=== PATIENT | female | born 1995 | race Caucasian/White ===

== ENCOUNTER 2017-01-12 21:25 | Emergency (ER) | payer SELFPAY ==
--- NOTE | 2017-01-12 22:12 | ED NURSING NOTES ---
Clinical Report - Nurses [facility] [address] [place] [address] 01/12/2017 21:27 Patient: PAT PATEL TRIAGE Triage time 21:32 Jan 12 2017. Acuity: LEVEL 3. Chief Complaint: PAINFUL URINATION, URGENCY and FREQUENCY. 21:37 01/12/17. SEPSIS SCREEN: Sepsis Screen. Negative (no infection suspected/documented). PEDRO COMA SCORE: Pedro Coma Scale: 15- eyes open spontaneously (4); best verbal response- oriented x 4 (5); best motor response- obeys commands (6). --21:37 Tiffany May R.N. 21:31 01/12/17. BP: 127/82 (regular adult cuff) taken on the left arm, while sitting. HR: 94. RR: 18. O2 saturation: 100% on room air. Temp: 98.2 F (oral). Pain level now: 8. --21:37 Tiffany May R.N. Weight: 69.8 kg stated. Height/Length: 68 inches Per Patient. BMI: 23.4. Growth Chart Percentile: Weight: 84.5%. Height/Length: 92.8%. --21:33 Tiffany May R.N. Medications None. --21:33 Tiffany May R.N. Allergies No Known Drug Allergy. --21:33 Tiffany May R.N. History Arrived by private vehicle. Historian: patient. Accompanied by friend. Onset. (2 days ago). She has had moderate, cramping, constant abdominal pain. The pain is described as located in the lower abdomen and associated with nausea and hematuria. 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 PAST MEDICAL HX: Last normal menstrual period now. SOCIAL HX: Current every day heavy tobacco smoker (cigarette)- less than 1 pack per day. History of weekly drug use: marijuana. No alcohol use. No infectious disease exposure. ABUSE ASSESSMENT: No report of abuse. SELF HARM ASSESSMENT: A self harm assessment was performed. The patient answered "no" to the question "Do you have thoughts of harming or killing yourself?" and "Have you recently had thoughts about harming or killing others?". --21:37 Tiffany May R.N. PROBLEMS: Cellulitis. Laceration. --21:33 Tiffany May R.N. ADDITIONAL SURGERIES: no known surgeries. Interventions ID band on patient. To treatment room. --21:37 Tiffany May R.N. PHYSICAL ASSESSMENT 21:38 01/12/17. Ambulatory to room. Patient gowned. GENERAL / NEURO / PSYCH: Alert. Oriented X 4. Appears in no acute distress. Appears in pain. HEENT: Mucous membranes are pink. RESPIRATORY: Respirations not labored. Breath sounds within normal limits. CVS: Normal heart rate and rhythm. Capillary refill less than 2 seconds. GI / : Abdomen soft and nontender. Guarding present. Bowel sounds within normal limits. No vaginal bleeding. No vaginal discharge. SKIN: Skin is warm and dry. --21:38 Tiffany May R.N. NURSING PROGRESS NOTES 21:38 01/12/17. The plan of care for this patient has been created. Monitoring of patient in place. Patient gowned. Head of bed elevated. Reassurance given. Two patient identifiers checked. Call light placed in reach. Side rails up x 1. Bed placed in lowest position. Brakes of bed on. Patient ready for evaluation- chart flagged and ED physician notified. --21:38 Tiffany May R.N. late entry - 21:45 01/12/17. ( Patients boyfriend at bedside for comfort, offered warm blanket she refused). --22:19 Tiffany May R.N. 22:18 01/12/2017 Macrobid PO Capsules 100 mg given. Allergies verified and confirmed 5 rights. --22:18 Tiffany May R.N. DISPOSITION / DISCHARGE 22:23 01/12/17. Condition at departure: unchanged. No learning barriers present. Discharge instructions provided and reviewed with the patient. Reviewed medication(s) side effects, precautions, dosing and course information. Prescription(s) given to the patient. Patient verbalized understanding. Written instructions provided in Macedonian. The patient was discharged by the physician assistant tennis coach. She was discharged home. She left the Emergency Department ambulatory and via private vehicle. Jewel Bearing Maker driving. --22:23 Tiffany May R.N. 22:18 01/12/17. BP: 118/85 (regular adult cuff) taken on the left arm, while sitting. HR: 89. RR: 18. O2 saturation: 99% on room air. Temp: 98.9 F (oral). Pain level now: 02/18. --22:23 Tiffany May R.N. Departure time: 22:Jan 12 2017. --22:26 Tiffany May R.N. Locked/Released at 01/13/2017 5:51 by Tiffany May R.N.
--- NOTE | 2017-01-12 22:12 | ED NURSING NOTES ---
Clinical Report - Nurses [facility] [address] [place] [address] 01/12/2017 21:27 Patient: PAT PATEL TRIAGE Triage time 21:32 Jan 12 2017. Acuity: LEVEL 3. Chief Complaint: PAINFUL URINATION, URGENCY and FREQUENCY. 21:37 01/12/17. SEPSIS SCREEN: Sepsis Screen. Negative (no infection suspected/documented). PEDRO COMA SCORE: Pedro Coma Scale: 15- eyes open spontaneously (4); best verbal response- oriented x 4 (5); best motor response- obeys commands (6). --21:37 Tiffany May R.N. 21:31 01/12/17. BP: 127/82 (regular adult cuff) taken on the left arm, while sitting. HR: 94. RR: 18. O2 saturation: 100% on room air. Temp: 98.2 F (oral). Pain level now: 8. --21:37 Tiffany May R.N. Weight: 69.8 kg stated. Height/Length: 68 inches Per Patient. BMI: 23.4. Growth Chart Percentile: Weight: 84.5%. Height/Length: 92.8%. --21:33 Tiffany May R.N. Medications None. --21:33 Tiffany May R.N. Allergies No Known Drug Allergy. --21:33 Tiffany May R.N. History Arrived by private vehicle. Historian: patient. Accompanied by friend. Onset. (2 days ago). She has had moderate, cramping, constant abdominal pain. The pain is described as located in the lower abdomen and associated with nausea and hematuria. 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 PAST MEDICAL HX: Last normal menstrual period now. SOCIAL HX: Current every day heavy tobacco smoker (cigarette)- less than 1 pack per day. History of weekly drug use: marijuana. No alcohol use. No infectious disease exposure. ABUSE ASSESSMENT: No report of abuse. SELF HARM ASSESSMENT: A self harm assessment was performed. The patient answered "no" to the question "Do you have thoughts of harming or killing yourself?" and "Have you recently had thoughts about harming or killing others?". --21:37 Tiffany May R.N. PROBLEMS: Cellulitis. Laceration. --21:33 Tiffany May R.N. ADDITIONAL SURGERIES: no known surgeries. Interventions ID band on patient. To treatment room. --21:37 Tiffany May R.N. PHYSICAL ASSESSMENT 21:38 01/12/17. Ambulatory to room. Patient gowned. GENERAL / NEURO / PSYCH: Alert. Oriented X 4. Appears in no acute distress. Appears in pain. HEENT: Mucous membranes are pink. RESPIRATORY: Respirations not labored. Breath sounds within normal limits. CVS: Normal heart rate and rhythm. Capillary refill less than 2 seconds. GI / : Abdomen soft and nontender. Guarding present. Bowel sounds within normal limits. No vaginal bleeding. No vaginal discharge. SKIN: Skin is warm and dry. --21:38 Tiffany May R.N. NURSING PROGRESS NOTES 21:38 01/12/17. The plan of care for this patient has been created. Monitoring of patient in place. Patient gowned. Head of bed elevated. Reassurance given. Two patient identifiers checked. Call light placed in reach. Side rails up x 1. Bed placed in lowest position. Brakes of bed on. Patient ready for evaluation- chart flagged and ED physician notified. --21:38 Tiffany May R.N. late entry - 21:45 01/12/17. ( Patients boyfriend at bedside for comfort, offered warm blanket she refused). --22:19 Tiffany May R.N. 22:18 01/12/2017 Macrobid PO Capsules 100 mg given. Allergies verified and confirmed 5 rights. --22:18 Tiffany May R.N. DISPOSITION / DISCHARGE 22:23 01/12/17. Condition at departure: unchanged. No learning barriers present. Discharge instructions provided and reviewed with the patient. Reviewed medication(s) side effects, precautions, dosing and course information. Prescription(s) given to the patient. Patient verbalized understanding. Written instructions provided in [place]. The patient was discharged by the physician embroidery assistant. She was discharged home. She left the Emergency Department ambulatory and via private vehicle. Sr. Manager driving. --22:23 Tiffany May R.N. 22:18 01/12/17. BP: 118/85 (regular adult cuff) taken on the left arm, while sitting. HR: 89. RR: 18. O2 saturation: 99% on room air. Temp: 98.9 F (oral). Pain level now: 02/18. --22:23 Tiffany May R.N. Departure time: 22:Jan 12 2017. --22:26 Tiffany May R.N. Locked/Released at 01/13/2017 5:51 by Tiffany May R.N.
--- NOTE | 2017-01-12 22:12 | ED CLINICAL REPORT ---
Clinical Report - Physicians/Mid Levels [facility] [address] [place] [address] 01/12/2017 21:27 Patient: PAT PATEL Time Seen: 2129Jan 12 2017. Arrived- By private vehicle. Historian- patient. HISTORY OF PRESENT ILLNESS Chief Complaint: PELVIC PAIN and DYSURIA. This started 2 days and still present. The symptoms are described as mild. The patient has had pelvic pain. No pain with urination or urinary frequency. Last normal menstrual period- now. Sexually active. Does not use control measures. (Patient reports 2 day history of frequency urgency and dysuria. Menses started over the last 24 hours. Denies any fevers. Patient essentially active, with bedside. Denies history of sexual transmitted diseases. Denies any discharge.). REVIEW OF SYSTEMS No nausea, vomiting, headache, fever or eye discomfort. No cough, difficulty breathing, skin rash or enlarged lymph nodes. All systems otherwise negative, except as recorded above. PAST HISTORY Problems: Cellulitis. Laceration. Tetanus Status. Immunizations. LNMP - Last Normal Menstrual Period. Additional Surgeries: no known surgeries. Medications: None. Allergies: No Known Drug Allergy. SOCIAL HISTORY Smoker- current status unknown. History of drug use: marijuana. No alcohol use. ADDITIONAL NOTES The nursing notes have been reviewed. PHYSICAL EXAM Vital Signs: 01/12/2017 22:18 BP: 118/85. HR: 89. RR: 18. O2 saturation: 99%. Temp: 98.9 F. Pain level now: 8/10. Appearance: Alert. Neck: Neck supple. CVS: Heart sounds normal. Respiratory: No respiratory distress. Breath sounds normal. Abdomen: Soft and nontender. The bowel sounds are not abnormal. Back: Normal external inspection. No CVA tenderness. Skin: Skin warm. Neuro: Oriented X 3. LABS, X-RAYS, AND EKG Laboratory Tests: UA-Culture if indicated: (SUZY: 01/12/2017 21:35) ( MsgRcvd 01/12/2017 22:00) Final results Test Result Flag Units (Reference) URINE COLOR BLOODY URINE APPEARANCE BLOODY URINE GLUCOSE TRACE (NEGATIVE) URINE BILIRUBIN NEGATIVE (NEGATIVE) URINE SPECIFIC GRAVITY 1.020 (1.010-1.030) URINE PH 7.5 (5.0-8.0) URINE PROTEIN 3+ (NEGATIVE) URINE BLOOD 3+ (NEGATIVE) URINE LEUK ESTERASE POSITIVE (NEGATIVE) URINE RBC >100 rbc/hpf (0-1) URINE WBC 5-10 wbc/hpf (0-1) URINE EPITHELIAL CELLS 0-1 EPI/hpf (0-5) URINE BACTERIA NONE SEEN (NONE SEEN) URINE COMMENT CULTURE INDICATED KETONE,UROBILINOGEN AND NITRITE NOT REPORTED DUE TO COLORINTERFERENCE.URINE CULTURES ARE SET-UP BASED ON THE FOLLOWING CRITERIA:POSITIVE NITRITEPOSITIVE LEUKOCYTE ESTERASEGREATER THAN 10 WHITE BLOOD CELLSMODERATE (2+) OR GREATER BACTERIA Urine: (SUZY: 01/12/2017 21:35) ( MsgRcvd 01/12/2017 22:01) Final results Test Result Flag Units (Reference) URINE NEGATIVE . PROGRESS AND PROCEDURES Course of Care: Patient here in the emergency department with urgency frequency and dysuria, currently on her menses, questionable whether that sample is contaminated with that. She has no pain beyond dysuria and frequency. No discharge. Pain is on a proportion to symptoms. No rebound no guarding. I do not suspect ovarian mass, tubo-ovarian abscess. Patient is stable. Physical exam findings are improved. Symptoms better. Patient/family counseled. Disposition: Discharged. CLINICAL IMPRESSION Acute urinary tract infection with cystitis. INSTRUCTIONS Drink plenty of fluids. (Negative test in the ER). Warnings: Further evaluation is necessary. Prescription Medications: Pyridium 200 mg: take 1 orally every 8 hours as needed for urinary problems. Dispense six (6). No refills. Substitution is permissible. Macrobid 100 mg: take 1 capsule orally every 12 hours for 7 days. No refill. Substitution is permissible. Motrin every 8 hours for 5 days, as needed for pain. Dispense fifteen (15). No refill. Follow-up: Follow up with your doctor in three days as needed. Understanding of the discharge instructions verbalized. (Electronically signed by Trina Dougherty P.ADhara-C 01/12/2017 22:55)
--- NOTE | 2017-01-12 22:12 | ED ORDER SUMMARY ---
..... Patient: PAT PATEL OrderSheet [facility] VisitID: [id number] [place] [address] 21y, F Registration Date/Time: 01/12/2017 ORDER SHEET Weight: 69.8 kg (stated) Allergies: No Known Drug Allergy GENERAL ORDERS: UA-Culture if indicated Urgent (21:32 01/12/2017 EKoroleva P.A.-C) (Ack 21:37 RKaruga) (21:41 JSanders R.N.) Urine Urgent (21:32 01/12/2017 EKoroleva P.A.-C) (Ack 21:37 RKsalina) (21:41 JSanders R.N.) MEDICATION ORDERS: Macrobid PO 100 mg (NOW) (22:04 01/12/2017 EKoroleva P.A.-C) (Ack 22:16 JSanders R.N.) (22:18 JSanders R.N.) IV FLUIDS: ORDER SHEET NOTES: [Electronically signed by Trina DoughertyADhara-C (22:55 01/12/2017)] [Electronically signed by Tiffany May R.N. (05:51 01/13/2017)] [Electronically locked/signed by Tiffany May R.N. (05:51 01/13/2017)]
--- NOTE | 2017-01-12 22:12 | ED ORDER SUMMARY ---
..... Patient: PAT PATEL OrderSheet [facility] VisitID: [id number] [place] [address] 21y, F Registration Date/Time: 01/12/2017 ORDER SHEET Weight: 69.8 kg (stated) Allergies: No Known Drug Allergy GENERAL ORDERS: UA-Culture if indicated Urgent (21:32 01/12/2017 EKoroleva P.A.-C) (Ack 21:37 RKaruga) (21:41 JSanders R.N.) Urine Urgent (21:32 01/12/2017 EKoroleva P.A.-C) (Ack 21:37 RKsalina) (21:41 JSanders R.N.) MEDICATION ORDERS: Macrobid PO 100 mg (NOW) (22:04 01/12/2017 EKoroleva P.A.-C) (Ack 22:16 JSanders R.N.) (22:18 JSanders R.N.) IV FLUIDS: ORDER SHEET NOTES: [Electronically signed by Trina DoughertyADhara-C (22:55 01/12/2017)] [Electronically signed by Tiffany May R.N. (05:51 01/13/2017)] [Electronically locked/signed by Tiffany May R.N. (05:51 01/13/2017)]
--- NOTE | 2017-01-13 05:51 | ED MED RECONCILIATION SUMMARY ---
Patient: PAT PATEL Medication Reconciliation Report [facility] VisitID: [id number] [place] [address] 21y, F Registration Date/Time: 01/12/2017 Weight: 69.8 kg Height/Length: 68 in. BMI: 23.4 ALLERGIES: No Known Drug Allergy The patient's Home Medications are listed below: NONE. The source(s) of the original Home Medication information: Not obtained. The following Medications were given to the patient in the Emergency Department: Macrobid [PO] PO 100 mg, administered: 01/12/2017 10:18:00 PM The following Medications were prescribed to the patient: Pyridium 200 mg: take 1 orally every 8 hours as needed for urinary problems. Dispense six (6). No refills. Substitution is permissible. -- Trina Dougherty, P.A.-C Macrobid 100 mg: take 1 capsule orally every 12 hours for 7 days. No refill. Substitution is permissible. -- Trina Dougherty, P.A.-C Motrin every 8 hours for 5 days, as needed for pain. Dispense fifteen (15). No refill. -- Trina Dougherty, P.A.-C
--- NOTE | 2017-01-13 05:51 | ED DISCHARGE INSTRUCTIONS ---
Patient: PAT PATEL General Instructions [facility] VisitID: [id number] [place] [address] 21y, F Registration Date/Time: 01/12/2017 Acute urinary tract infection with cystitis. INSTRUCTIONS Drink plenty of fluids. (Negative test in the ER). Warnings: Further evaluation is necessary. Prescription Medications: Pyridium 200 mg: take 1 orally every 8 hours as needed for urinary problems. Dispense six (6). No refills. Substitution is permissible. Macrobid 100 mg: take 1 capsule orally every 12 hours for 7 days. No refill. Substitution is permissible. Motrin every 8 hours for 5 days, as needed for pain. Dispense fifteen (15). No refill. Follow-up: Follow up with your doctor in three days as needed. Understanding of the discharge instructions verbalized. ADDITIONAL INFORMATION Bladder Infection,Female (Adult) A bladder infection ("cystitis" or "UTI") usually causes a constant urge to urinate and a burning when passing urine. Urine may be cloudy, smelly or dark. There may be pain in the lower abdomen. A bladder infection occurs when bacteria from the vaginal area enter the bladder opening (urethra). This can occur from sexual intercourse, wearing tight clothing, dehydration and other factors. Home Care: Drink lots of fluids (at least 6-8 glasses a day, unless you must restrict fluids for other medical reasons). This will force the medicine into your urinary system and flush the bacteria out of your body. Avoid sexual intercourse until your symptoms are gone. Avoid caffeine, alcohol and spicy foods. These can irritate the bladder. A bladder infection is treated with antibiotics. You may also be given Pyridium (generic = phenazopyridine) to reduce the burning sensation. This medicine will cause your urine to become a bright orange color. The orange urine may stain clothing. You may wear a pad or panty-liner to protect clothing. Preventing Future Infections: Always wipe from front to back after a bowel movement. Keep the genital area clean and dry. Drink plenty of fluids each day to avoid dehydration. Both sexual partners should wash before intercourse. Urinate right after intercourse to flush out the bladder. Wear cotton underwear and cotton-lined panty hose; avoid tight-fitting pants. If you are on control pills and are having frequent bladder infections, discuss with your doctor. Follow Up: Return to this facility or see your doctor if ALL symptoms are not gone after three days of treatment. Get Prompt Medical Attention if any of the following occur: Fever of 100.4F (38C) or higher, or as directed by your healthcare provider No improvement by the third day of treatment Increasing back or abdominal pain Repeated vomiting; unable to keep medicine down Weakness, dizziness or fainting Vaginal discharge Pain, redness or swelling in the labia (outer vaginal area) Nitrofurantoin, Nitrofurantoin, Macrocrystalline Oral capsule What is this medicine? NITROFURANTOIN (tita tomasshirley eva MARTINZE toyn) is an antibiotic. It is used to treat urinary tract infections. How should I use this medicine? Take this medicine by mouth with a glass of water. Follow the directions on the prescription label. Take this medicine with food or milk. Take your doses at regular intervals. Do not take your medicine more often than directed. Do not stop taking except on your doctor's advice. Talk to your clerical manager regarding the use of this medicine in children. While this drug may be prescribed for selected conditions, precautions do apply. What side effects may I notice from receiving this medicine? Side effects that you should report to your doctor or health critical care unit nurse as soon as possible: allergic reactions like skin rash or hives, swelling of the face, lips, or tongue chest pain cough difficulty breathing dizziness, drowsiness fever or infection joint aches or pains pale or blue-tinted skin redness, blistering, peeling or loosening of the skin, including inside the mouth tingling, burning, pain, or numbness in hands or feet unusual bleeding or bruising unusually weak or tired yellowing of eyes or skin Side effects that usually do not require medical attention (report to your doctor or health critical care unit nurse if they continue or are bothersome): dark urine diarrhea headache loss of appetite nausea or vomiting temporary hair loss What may interact with this medicine? antacids containing magnesium trisilicate probenecid quinolone antibiotics like ciprofloxacin, lomefloxacin, norfloxacin and ofloxacin sulfinpyrazone What if I miss a dose? If you miss a dose, take it as soon as you can. If it is almost time for your next dose, take only that dose. Do not take double or extra doses. Where should I keep my medicine? Keep out of the reach of children. Store at room temperature between 15 and 30 degrees C (59 and 86 degrees F). Protect from light. Throw away any unused medicine after the expiration date. What should I tell my health care provider before I take this medicine? They need to know if you have any of these conditions: anemia diabetes cewqhur-1-[id number] dehydrogenase deficiency kidney disease liver disease lung disease other chronic illness an unusual or allergic reaction to nitrofurantoin, other antibiotics, other medicines, foods, dyes or preservatives or trying to get breast-feeding What should I watch for while using this medicine? Tell your doctor or health critical care unit nurse if your symptoms do not improve or if you get new symptoms. Drink several glasses of water a day. If you are taking this medicine for a long time, visit your doctor for regular checks on your progress. If you are diabetic, you may get a false positive result for sugar in your urine with certain brands of urine tests. Check with your doctor. Ibuprofen Oral tablet What is this medicine? IBUPROFEN (eye BYOO proe fen) is a non-steroidal anti-inflammatory drug (NSAID). It is used for dental pain, fever, headaches or migraines, osteoarthritis, rheumatoid arthritis, or painful monthly periods. It can also relieve minor aches and pains caused by a cold, flu, or sore throat. How should I use this medicine? Take this medicine by mouth with a glass of water. Follow the directions on the prescription label. Take this medicine with food if your stomach gets upset. Try to not lie down for at least 10 minutes after you take the medicine. Take your medicine at regular intervals. Do not take your medicine more often than directed. A special MedGuide will be given to you by the pharmacist with each prescription and refill. Be sure to read this information carefully each time. Talk to your clerical manager regarding the use of this medicine in children. Special care may be needed. What side effects may I notice from receiving this medicine? Side effects that you should report to your doctor or health critical care unit nurse as soon as possible: allergic reactions like skin rash, itching or hives, swelling of the face, lips, or tongue black or bloody stools, blood in the urine or in vomit breathing problems changes in vision chest pain general ill feeling or flu-like symptoms nausea or vomiting redness, blistering, peeling or loosening of the skin, including inside the mouth slurred speech or weakness on one side of the body stomach pain unexplained weight gain or swelling unusually weak or tired yellowing of eyes or skin Side effects that usually do not require medical attention (report to your doctor or health critical care unit nurse if they continue or are bothersome): constipation or diarrhea dizziness gas or heartburn stomach upset What may interact with this medicine? Do not take this medicine with any of the following medications: cidofovir ketorolac methotrexate pemetrexed This medicine may also interact with the following medications: alcohol aspirin diuretics lithium other drugs for inflammation like prednisone warfarin What if I miss a dose? If you miss a dose, take it as soon as you can. If it is almost time for your next dose, take only that dose. Do not take double or extra doses. Where should I keep my medicine? Keep out of the reach of children. Store at room temperature between 15 and 30 degrees C (59 and 86 degrees F). Keep container tightly closed. Throw away any unused medicine after the expiration date. What should I tell my health care provider before I take this medicine? They need to know if you have any of these conditions: asthma cigarette smoker drink more than 3 alcohol containing drinks a day heart disease or circulation problems such as heart failure or leg edema (fluid retention) high blood pressure kidney disease liver disease stomach bleeding or ulcers an unusual or allergic reaction to ibuprofen, aspirin, other NSAIDS, other medicines, foods, dyes, or preservatives or trying to get breast-feeding What should I watch for while using this medicine? Tell your doctor or healthcare professional if your symptoms do not start to get better or if they get worse. This medicine does not prevent heart attack or stroke. In fact, this medicine may increase the chance of a heart attack or stroke. The chance may increase with longer use of this medicine and in people who have heart disease. If you take aspirin to prevent heart attack or stroke, talk with your doctor or health critical care unit nurse. Do not take other medicines that contain aspirin, ibuprofen, or naproxen with this medicine. Side effects such as stomach upset, nausea, or ulcers may be more likely to occur. Many medicines available without a prescription should not be taken with this medicine. This medicine can cause ulcers and bleeding in the stomach and intestines at any time during treatment. Ulcers and bleeding can happen without warning symptoms and can cause . To reduce your risk, do not smoke cigarettes or drink alcohol while you are taking this medicine. You may get drowsy or dizzy. Do not drive, use machinery, or do anything that needs mental alertness until you know how this medicine affects you. Do not stand or sit up quickly, especially if you are an older patient. This reduces the risk of dizzy or fainting spells. This medicine can cause you to bleed more easily. Try to avoid damage to your teeth and gums when you brush or floss your teeth. You have been given the following additional information: Bladder Infection, Female (Adult) Nitrofurantoin, Nitrofurantoin, Macrocrystalline Oral capsule Ibuprofen Oral tablet (Electronically signed by Trina Dougherty P.A.-C 01/12/2017 22:55)
--- NOTE | 2017-01-13 05:51 | ED MAR SUMMARY ---
..... Medication Administration Record [facility] [address] [place] [address] Patient: PAT PATEL Visit ID: [id number] 21y, F Weight: 69.8 kg Height/Length: 68 in BMI: 23.4 ALLERGIES: No Known Drug Allergy Given 22:18 01/12/2017 Tiffany May R.N. Medication Administered: MACROBID [PO], Dose: 100 mg Capsules PO. Medication Ordered: Macrobid PO 100 mg (NOW).
--- NOTE | 2017-01-13 05:51 | ED MAR SUMMARY ---
..... Medication Administration Record [facility] [address] [place] [address] Patient: PAT PATEL Visit ID: [id number] 21y, F Weight: 69.8 kg Height/Length: 68 in BMI: 23.4 ALLERGIES: No Known Drug Allergy Given 22:18 01/12/2017 Tiffany May R.N. Medication Administered: MACROBID [PO], Dose: 100 mg Capsules PO. Medication Ordered: Macrobid PO 100 mg (NOW).
--- NOTE | 2017-01-13 05:51 | ED MED RECONCILIATION SUMMARY ---
Patient: PAT PATEL Medication Reconciliation Report Merged With [facility] VisitID: [id number] [place] [address] 21y, F Registration Date/Time: 01/12/2017 Weight: 69.8 kg Height/Length: 68 in. BMI: 23.4 ALLERGIES: No Known Drug Allergy The patient's Home Medications are listed below: NONE. The source(s) of the original Home Medication information: Not obtained. The following Medications were given to the patient in the Emergency Department: Macrobid [PO] PO 100 mg, administered: 01/12/2017 10:18:00 PM The following Medications were prescribed to the patient: Pyridium 200 mg: take 1 orally every 8 hours as needed for urinary problems. Dispense six (6). No refills. Substitution is permissible. -- Trina Dougherty, P.A.-C Macrobid 100 mg: take 1 capsule orally every 12 hours for 7 days. No refill. Substitution is permissible. -- Trina Dougherty, P.A.-C Motrin every 8 hours for 5 days, as needed for pain. Dispense fifteen (15). No refill. -- Trina Dougherty, P.A.-C
--- NOTE | 2017-01-13 05:51 | ED DISCHARGE INSTRUCTIONS ---
Patient: PAT PATEL General Instructions [facility] VisitID: [id number] [place] [address] 21y, F Registration Date/Time: 01/12/2017 Acute urinary tract infection with cystitis. INSTRUCTIONS Drink plenty of fluids. (Negative test in the ER). Warnings: Further evaluation is necessary. Prescription Medications: Pyridium 200 mg: take 1 orally every 8 hours as needed for urinary problems. Dispense six (6). No refills. Substitution is permissible. Macrobid 100 mg: take 1 capsule orally every 12 hours for 7 days. No refill. Substitution is permissible. Motrin every 8 hours for 5 days, as needed for pain. Dispense fifteen (15). No refill. Follow-up: Follow up with your doctor in three days as needed. Understanding of the discharge instructions verbalized. ADDITIONAL INFORMATION Bladder Infection,Female (Adult) A bladder infection ("cystitis" or "UTI") usually causes a constant urge to urinate and a burning when passing urine. Urine may be cloudy, smelly or dark. There may be pain in the lower abdomen. A bladder infection occurs when bacteria from the vaginal area enter the bladder opening (urethra). This can occur from sexual intercourse, wearing tight clothing, dehydration and other factors. Home Care: Drink lots of fluids (at least 6-8 glasses a day, unless you must restrict fluids for other medical reasons). This will force the medicine into your urinary system and flush the bacteria out of your body. Avoid sexual intercourse until your symptoms are gone. Avoid caffeine, alcohol and spicy foods. These can irritate the bladder. A bladder infection is treated with antibiotics. You may also be given Pyridium (generic = phenazopyridine) to reduce the burning sensation. This medicine will cause your urine to become a bright orange color. The orange urine may stain clothing. You may wear a pad or panty-liner to protect clothing. Preventing Future Infections: Always wipe from front to back after a bowel movement. Keep the genital area clean and dry. Drink plenty of fluids each day to avoid dehydration. Both sexual partners should wash before intercourse. Urinate right after intercourse to flush out the bladder. Wear cotton underwear and cotton-lined panty hose; avoid tight-fitting pants. If you are on control pills and are having frequent bladder infections, discuss with your doctor. Follow Up: Return to this facility or see your doctor if ALL symptoms are not gone after three days of treatment. Get Prompt Medical Attention if any of the following occur: Fever of 100.4F (38C) or higher, or as directed by your healthcare provider No improvement by the third day of treatment Increasing back or abdominal pain Repeated vomiting; unable to keep medicine down Weakness, dizziness or fainting Vaginal discharge Pain, redness or swelling in the labia (outer vaginal area) Nitrofurantoin, Nitrofurantoin, Macrocrystalline Oral capsule What is this medicine? NITROFURANTOIN (tita tomasshirley eva MARTINEZ toyn) is an antibiotic. It is used to treat urinary tract infections. How should I use this medicine? Take this medicine by mouth with a glass of water. Follow the directions on the prescription label. Take this medicine with food or milk. Take your doses at regular intervals. Do not take your medicine more often than directed. Do not stop taking except on your doctor's advice. Talk to your patient ombudsperson regarding the use of this medicine in children. While this drug may be prescribed for selected conditions, precautions do apply. What side effects may I notice from receiving this medicine? Side effects that you should report to your doctor or health senior care assistant as soon as possible: allergic reactions like skin rash or hives, swelling of the face, lips, or tongue chest pain cough difficulty breathing dizziness, drowsiness fever or infection joint aches or pains pale or blue-tinted skin redness, blistering, peeling or loosening of the skin, including inside the mouth tingling, burning, pain, or numbness in hands or feet unusual bleeding or bruising unusually weak or tired yellowing of eyes or skin Side effects that usually do not require medical attention (report to your doctor or health senior care assistant if they continue or are bothersome): dark urine diarrhea headache loss of appetite nausea or vomiting temporary hair loss What may interact with this medicine? antacids containing magnesium trisilicate probenecid quinolone antibiotics like ciprofloxacin, lomefloxacin, norfloxacin and ofloxacin sulfinpyrazone What if I miss a dose? If you miss a dose, take it as soon as you can. If it is almost time for your next dose, take only that dose. Do not take double or extra doses. Where should I keep my medicine? Keep out of the reach of children. Store at room temperature between 15 and 30 degrees C (59 and 86 degrees F). Protect from light. Throw away any unused medicine after the expiration date. What should I tell my health care provider before I take this medicine? They need to know if you have any of these conditions: anemia diabetes oavxjzg-5-ufkehceof dehydrogenase deficiency kidney disease liver disease lung disease other chronic illness an unusual or allergic reaction to nitrofurantoin, other antibiotics, other medicines, foods, dyes or preservatives or trying to get breast-feeding What should I watch for while using this medicine? Tell your doctor or health senior care assistant if your symptoms do not improve or if you get new symptoms. Drink several glasses of water a day. If you are taking this medicine for a long time, visit your doctor for regular checks on your progress. If you are diabetic, you may get a false positive result for sugar in your urine with certain brands of urine tests. Check with your doctor. Ibuprofen Oral tablet What is this medicine? IBUPROFEN (eye BYOO proe fen) is a non-steroidal anti-inflammatory drug (NSAID). It is used for dental pain, fever, headaches or migraines, osteoarthritis, rheumatoid arthritis, or painful monthly periods. It can also relieve minor aches and pains caused by a cold, flu, or sore throat. How should I use this medicine? Take this medicine by mouth with a glass of water. Follow the directions on the prescription label. Take this medicine with food if your stomach gets upset. Try to not lie down for at least 10 minutes after you take the medicine. Take your medicine at regular intervals. Do not take your medicine more often than directed. A special MedGuide will be given to you by the pharmacist with each prescription and refill. Be sure to read this information carefully each time. Talk to your patient ombudsperson regarding the use of this medicine in children. Special care may be needed. What side effects may I notice from receiving this medicine? Side effects that you should report to your doctor or health senior care assistant as soon as possible: allergic reactions like skin rash, itching or hives, swelling of the face, lips, or tongue black or bloody stools, blood in the urine or in vomit breathing problems changes in vision chest pain general ill feeling or flu-like symptoms nausea or vomiting redness, blistering, peeling or loosening of the skin, including inside the mouth slurred speech or weakness on one side of the body stomach pain unexplained weight gain or swelling unusually weak or tired yellowing of eyes or skin Side effects that usually do not require medical attention (report to your doctor or health senior care assistant if they continue or are bothersome): constipation or diarrhea dizziness gas or heartburn stomach upset What may interact with this medicine? Do not take this medicine with any of the following medications: cidofovir ketorolac methotrexate pemetrexed This medicine may also interact with the following medications: alcohol aspirin diuretics lithium other drugs for inflammation like prednisone warfarin What if I miss a dose? If you miss a dose, take it as soon as you can. If it is almost time for your next dose, take only that dose. Do not take double or extra doses. Where should I keep my medicine? Keep out of the reach of children. Store at room temperature between 15 and 30 degrees C (59 and 86 degrees F). Keep container tightly closed. Throw away any unused medicine after the expiration date. What should I tell my health care provider before I take this medicine? They need to know if you have any of these conditions: asthma cigarette smoker drink more than 3 alcohol containing drinks a day heart disease or circulation problems such as heart failure or leg edema (fluid retention) high blood pressure kidney disease liver disease stomach bleeding or ulcers an unusual or allergic reaction to ibuprofen, aspirin, other NSAIDS, other medicines, foods, dyes, or preservatives or trying to get breast-feeding What should I watch for while using this medicine? Tell your doctor or healthcare professional if your symptoms do not start to get better or if they get worse. This medicine does not prevent heart attack or stroke. In fact, this medicine may increase the chance of a heart attack or stroke. The chance may increase with longer use of this medicine and in people who have heart disease. If you take aspirin to prevent heart attack or stroke, talk with your doctor or health senior care assistant. Do not take other medicines that contain aspirin, ibuprofen, or naproxen with this medicine. Side effects such as stomach upset, nausea, or ulcers may be more likely to occur. Many medicines available without a prescription should not be taken with this medicine. This medicine can cause ulcers and bleeding in the stomach and intestines at any time during treatment. Ulcers and bleeding can happen without warning symptoms and can cause . To reduce your risk, do not smoke cigarettes or drink alcohol while you are taking this medicine. You may get drowsy or dizzy. Do not drive, use machinery, or do anything that needs mental alertness until you know how this medicine affects you. Do not stand or sit up quickly, especially if you are an older patient. This reduces the risk of dizzy or fainting spells. This medicine can cause you to bleed more easily. Try to avoid damage to your teeth and gums when you brush or floss your teeth. You have been given the following additional information: Bladder Infection, Female (Adult) Nitrofurantoin, Nitrofurantoin, Macrocrystalline Oral capsule Ibuprofen Oral tablet (Electronically signed by Trina Dougherty P.A.-C 01/12/2017 22:55)
== END 2017-01-12 22:26 | disposition home or self-care (01) ==
LOC: ED SRH 21:25
DX: N30.90 Cystitis, unspecified without hematuria (principal)
CPT/HCPCS: 90004; 90469; 90627; 93070

== ENCOUNTER 2017-01-24 16:44 | Emergency (ER) | payer SELFPAY ==
--- NOTE | 2017-01-24 17:20 | ED CLINICAL REPORT ---
Clinical Report - Physicians/Mid Levels [facility] [address] [place] [address] 01/24/2017 16:47 Patient: PAT PATEL Time Seen: 17:22 Jan 24 2017. Arrived- By private vehicle. Historian- patient. HISTORY OF PRESENT ILLNESS Chief Complaint: SKIN RASH and LESION. This started 2 days and is still present. It has not been located on the right upper extremity. (Patient presents with skin lesions generalized of her forearm, as well as lower extremity. NO fevers/ chills.). REVIEW OF SYSTEMS No fever, cough, nausea or diarrhea. All systems otherwise negative, except as recorded above. PAST HISTORY Problems: Substance Abuse. Polycystic Ovary Disease. UTI - Urinary Tract Infection. Cellulitis. Laceration. Tetanus Status. Immunizations. LNMP - Last Normal Menstrual Period. Additional Surgeries: Tonsillectomy. Medications: None. Allergies: None. SOCIAL HISTORY History of IV drug use: heroin, methamphetamines. ADDITIONAL NOTES The nursing notes have been reviewed. PHYSICAL EXAM Vital Signs: 01/24/2017 17:03 BP: 107/62. HR: 108. RR: 20. O2 saturation: 96%. Temp: 98 F. Pain level now: 0/10. Appearance: Alert. Eyes: Pupils equal, round and reactive to light. Conjunctivae and eyelids normal. ENT: Ears normal. Nose normal. Neck: Neck supple. CVS: Normal heart rate and rhythm. Heart sounds normal. Respiratory: No respiratory distress. Breath sounds normal. Skin: Skin warm. Erythema (Multiple lesions of the abdomen, as well as upper and lower extremities.). Cellulitis. Abscess (No fluctuance in any of the lesions, central abdomen is about 1 x 1 cm largest of all the lesions.). Neuro: Oriented X 3. PROGRESS AND PROCEDURES Course of Care: Tetanus immunization within the last 5 years. Afebrile. History of drug use. No signs of abscess for incision and drainage, multiple lesions, most likely MRSA. No systemic sx. No indication for further work up. Pt here with SO, male. Patient is stable. Patient/family counseled. Disposition: Discharged. CLINICAL IMPRESSION Cellulitis of the right forearm, right lower leg, left forearm and left lower leg (abdomen). (heroin/ meth). INSTRUCTIONS Prescription Medications: Bactrim DS 800 mg / 160 mg: take 1 tablet orally every 12 hours for 10 days. No refill. Substitution is permissible. Follow-up: Follow up with your doctor in three days. (Electronically signed by Trina Dougherty P.A.-C 01/24/2017 17:25)
--- NOTE | 2017-01-24 17:20 | ED ORDER SUMMARY ---
..... Patient: PAT PATEL OrderSheet [facility] VisitID: [id number] [address] [place] [address] 21y, F Registration Date/Time: 01/24/2017 ORDER SHEET Weight: 54.4 kg (stated) Allergies: None GENERAL ORDERS: Culture, Wound Surface (Abdomen) (r) Urgent (17:24 01/24/2017 Christopher Mcpherson.ADhara-C) (17:25 Kasia R.N.) (17:26 Christine R.N.) MEDICATION ORDERS: Bactrim DS PO (Tablet 800-160 mg) 1 tab (NOW) (17:19 01/24/2017 Christopher WangADhara-C) (17:26 Christine R.N.) IV FLUIDS: ORDER SHEET NOTES: [Electronically signed by Trina Dougherty P.A.-C (17:25 01/24/2017)] [Electronically signed by Candie Dickens R.N. (00:08 01/25/2017)] [Electronically locked/signed by Candie Dickens R.N. (00:08 01/25/2017)]
--- NOTE | 2017-01-24 17:20 | ED ORDER SUMMARY ---
..... Patient: PAT PATEL OrderSheet [facility] VisitID: [id number] [address] [place] [address] 21y, F Registration Date/Time: 01/24/2017 ORDER SHEET Weight: 54.4 kg (stated) Allergies: None GENERAL ORDERS: Culture, Wound Surface (Abdomen) (r) Urgent (17:24 01/24/2017 Christopher Mcpherson.ADhara-C) (17:25 Kasia R.N.) (17:26 Christine R.N.) MEDICATION ORDERS: Bactrim DS PO (Tablet 800-160 mg) 1 tab (NOW) (17:19 01/24/2017 Christopher WangADhara-C) (17:26 Christine R.N.) IV FLUIDS: ORDER SHEET NOTES: [Electronically signed by Trina Dougherty P.A.-C (17:25 01/24/2017)] [Electronically signed by Candie Dickens R.N. (00:08 01/25/2017)] [Electronically locked/signed by Candie Dickens R.N. (00:08 01/25/2017)]
--- NOTE | 2017-01-24 17:20 | ED NURSING NOTES ---
Clinical Report - Nurses [facility] [address] [place] [address] 01/24/2017 16:47 Patient: PAT PATEL TRIAGE Triage time 17:Jan 24 2017. Acuity: LEVEL 3. Chief Complaint: SKIN LESION. Alert. No acute distress. --17:08 Candie Dickens R.N. 17:03 01/24/17. BP: 107/62. HR: 108. RR: 20. O2 saturation: 96%. Temp: 98 F. Pain level now: 0/10. --17:08 Candie Dickens R.N. Weight: 54.4 kg stated. Height/Length: 68 inches Per Patient. BMI: 18.2. Growth Chart Percentile: Weight: 36.4%. Height/Length: 92.8%. --17:06 Candie Dickens R.N. Medications None. --17:04 Candie Dickens R.N. Allergies None. --17:05 Candie Dickens R.N. History Arrived by private vehicle. Historian: patient. Accompanied by friend. Reported as generalized in location. Onset. (several days). It is described as painful. ( patient states that she relapsed about a week ago with meth and herion.). 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 --17:08 Candie Dickens R.N. ( pt states that she "accidently shared a dirty needle" and would like a blood test). --17:13 Candie Dickens R.N. PROBLEMS: Substance Abuse. Polycystic Ovary Disease. UTI - Urinary Tract Infection. Cellulitis. Laceration. Tetanus Status. Immunizations. LNMP - Last Normal Menstrual Period. --17:05 Candie Dickens R.N. ADDITIONAL SURGERIES: Tonsillectomy. --17:05 Candie Dickens R.N. Interventions ID band on patient. To room. --17:08 Candie Dickens R.N. PHYSICAL ASSESSMENT Ambulatory to room. GENERAL / NEURO / PSYCH: The patient does not appear to be in acute distress. Decreased awareness (drowsy) (unsteady gait). RESPIRATORY: Respirations not labored. CVS: Capillary refill less than 2 seconds. GI / : Abdomen nontender. SKIN: Skin is warm and dry. Multiple superficial wounds present- chest abdomen face arms and legs. --17:10 Candie Dickens R.N. HEENT: Mucous membranes are pink. --17:10 Candie Dickens R.N. NURSING PROGRESS NOTES Patient gowned. Head of bed elevated. Patient identifiers checked. Call light placed in reach. Side rails up x 1. Bed placed in lowest position. Brakes of bed on. --17:10 Candie Dickens R.N. 17:26 01/24/2017 Bactrim DS (Sulfamethoxazole-TMP DS) PO Tablets 1 tab given. Allergies verified and confirmed 5 rights. --17:26 Candie Dickens R.N. DISPOSITION / DISCHARGE Departure time: 17:30 Jan 24 2017. Condition at departure: unchanged. No learning barriers present. Discharge instructions provided and reviewed with the patient. Reviewed medication(s) side effects, precautions, dosing and course information. Prescription(s) given to the patient. Reviewed referral to a primary care physician for followup. Patient verbalized understanding. Written instructions provided in Danish. The patient was discharged home and accompanied by electroneurodiagnostic technologist. She left the Emergency Department ambulatory and via private vehicle. Accounts Payable Administrator driving. FALL RISK ASSESSMENT: Fall risk assessment completed. No fall risk identified. --17:40 Candie Dickens R.N. Locked/Released at 01/25/2017 0:08 by Candie Dickens R.N.
--- NOTE | 2017-01-24 17:20 | ED CLINICAL REPORT ---
Clinical Report - Physicians/Mid Levels [facility] [address] [place] [address] 01/24/2017 16:47 Patient: PAT PATEL Time Seen: 17:22 Jan 24 2017. Arrived- By private vehicle. Historian- patient. HISTORY OF PRESENT ILLNESS Chief Complaint: SKIN RASH and LESION. This started 2 days and is still present. It has not been located on the right upper extremity. (Patient presents with skin lesions generalized of her forearm, as well as lower extremity. NO fevers/ chills.). REVIEW OF SYSTEMS No fever, cough, nausea or diarrhea. All systems otherwise negative, except as recorded above. PAST HISTORY Problems: Substance Abuse. Polycystic Ovary Disease. UTI - Urinary Tract Infection. Cellulitis. Laceration. Tetanus Status. Immunizations. LNMP - Last Normal Menstrual Period. Additional Surgeries: Tonsillectomy. Medications: None. Allergies: None. SOCIAL HISTORY History of IV drug use: heroin, methamphetamines. ADDITIONAL NOTES The nursing notes have been reviewed. PHYSICAL EXAM Vital Signs: 01/24/2017 17:03 BP: 107/62. HR: 108. RR: 20. O2 saturation: 96%. Temp: 98 F. Pain level now: 0/10. Appearance: Alert. Eyes: Pupils equal, round and reactive to light. Conjunctivae and eyelids normal. ENT: Ears normal. Nose normal. Neck: Neck supple. CVS: Normal heart rate and rhythm. Heart sounds normal. Respiratory: No respiratory distress. Breath sounds normal. Skin: Skin warm. Erythema (Multiple lesions of the abdomen, as well as upper and lower extremities.). Cellulitis. Abscess (No fluctuance in any of the lesions, central abdomen is about 1 x 1 cm largest of all the lesions.). Neuro: Oriented X 3. PROGRESS AND PROCEDURES Course of Care: Tetanus immunization within the last 5 years. Afebrile. History of drug use. No signs of abscess for incision and drainage, multiple lesions, most likely MRSA. No systemic sx. No indication for further work up. Pt here with SO, male. Patient is stable. Patient/family counseled. Disposition: Discharged. CLINICAL IMPRESSION Cellulitis of the right forearm, right lower leg, left forearm and left lower leg (abdomen). (heroin/ meth). INSTRUCTIONS Prescription Medications: Bactrim DS 800 mg / 160 mg: take 1 tablet orally every 12 hours for 10 days. No refill. Substitution is permissible. Follow-up: Follow up with your doctor in three days. (Electronically signed by Trina Dougherty P.A.-C 01/24/2017 17:25)
--- NOTE | 2017-01-24 17:20 | ED NURSING NOTES ---
Clinical Report - Nurses [facility] [address] [place] [address] 01/24/2017 16:47 Patient: PAT PATEL TRIAGE Triage time 17:Jan 24 2017. Acuity: LEVEL 3. Chief Complaint: SKIN LESION. Alert. No acute distress. --17:08 Candie Dickens R.N. 17:03 01/24/17. BP: 107/62. HR: 108. RR: 20. O2 saturation: 96%. Temp: 98 F. Pain level now: 0/10. --17:08 Candie Dickens R.N. Weight: 54.4 kg stated. Height/Length: 68 inches Per Patient. BMI: 18.2. Growth Chart Percentile: Weight: 36.4%. Height/Length: 92.8%. --17:06 Candie Dickens R.N. Medications None. --17:04 Candie Dickens R.N. Allergies None. --17:05 Candie Dickens R.N. History Arrived by private vehicle. Historian: patient. Accompanied by friend. Reported as generalized in location. Onset. (several days). It is described as painful. ( patient states that she relapsed about a week ago with meth and herion.). 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 --17:08 Candie Dickens R.N. ( pt states that she "accidently shared a dirty needle" and would like a blood test). --17:13 Candie Dickens R.N. PROBLEMS: Substance Abuse. Polycystic Ovary Disease. UTI - Urinary Tract Infection. Cellulitis. Laceration. Tetanus Status. Immunizations. LNMP - Last Normal Menstrual Period. --17:05 Candie Dickens R.N. ADDITIONAL SURGERIES: Tonsillectomy. --17:05 Candie Dickens R.N. Interventions ID band on patient. To room. --17:08 Candie Dickens R.N. PHYSICAL ASSESSMENT Ambulatory to room. GENERAL / NEURO / PSYCH: The patient does not appear to be in acute distress. Decreased awareness (drowsy) (unsteady gait). RESPIRATORY: Respirations not labored. CVS: Capillary refill less than 2 seconds. GI / : Abdomen nontender. SKIN: Skin is warm and dry. Multiple superficial wounds present- chest abdomen face arms and legs. --17:10 Candie Dickens R.N. HEENT: Mucous membranes are pink. --17:10 Candie Dickens R.N. NURSING PROGRESS NOTES Patient gowned. Head of bed elevated. Patient identifiers checked. Call light placed in reach. Side rails up x 1. Bed placed in lowest position. Brakes of bed on. --17:10 Canide Dickens R.N. 17:26 01/24/2017 Bactrim DS (Sulfamethoxazole-TMP DS) PO Tablets 1 tab given. Allergies verified and confirmed 5 rights. --17:26 Candie Dickens R.N. DISPOSITION / DISCHARGE Departure time: 17:30 Jan 24 2017. Condition at departure: unchanged. No learning barriers present. Discharge instructions provided and reviewed with the patient. Reviewed medication(s) side effects, precautions, dosing and course information. Prescription(s) given to the patient. Reviewed referral to a primary care physician for followup. Patient verbalized understanding. Written instructions provided in Kazakh. The patient was discharged home and accompanied by residential director. She left the Emergency Department ambulatory and via private vehicle. Hand Washer driving. FALL RISK ASSESSMENT: Fall risk assessment completed. No fall risk identified. --17:40 Candie Dickens R.N. Locked/Released at 01/25/2017 0:08 by Candie Dickens R.N.
--- NOTE | 2017-01-25 00:08 | ED MED RECONCILIATION SUMMARY ---
Patient: PAT PATEL Medication Reconciliation Report [facility] VisitID: [id number] [address] [place] [address] 21y, F Registration Date/Time: 01/24/2017 Weight: 54.4 kg Height/Length: 68 in. BMI: 18.2 ALLERGIES: None The patient's Home Medications are listed below: NONE. The source(s) of the original Home Medication information: Not obtained. The following Medications were given to the patient in the Emergency Department: Bactrim DS [PO] PO 1 tab, administered: 01/24/2017 5:26:00 PM The following Medications were prescribed to the patient: Bactrim DS 800 mg / 160 mg: take 1 tablet orally every 12 hours for 10 days. No refill. Substitution is permissible. -- Trina Dougherty PDharaADhara-C
--- NOTE | 2017-01-25 00:08 | ED MAR SUMMARY ---
..... Medication Administration Record [facility] [address] [place] [address] Patient: PAT PATEL Visit ID: [id number] 21y, F Weight: 54.4 kg Height/Length: 68 in BMI: 18.2 ALLERGIES: None Given 17:26 01/24/2017 Candie Dickens R.N. Medication Administered: BACTRIM DS [PO] (SULFAMETHOXAZOLE-TMP DS), Dose: 1 tab Tablets PO. Medication Ordered: Bactrim DS PO (Tablet 800-160 mg) 1 tab (NOW).
--- NOTE | 2017-01-25 00:08 | ED DISCHARGE INSTRUCTIONS ---
Patient: PAT PATEL General Instructions [facility] VisitID: [id number] [place] [address] 21y, F Registration Date/Time: 01/24/2017 Cellulitis of the right forearm, right lower leg, left forearm and left lower leg (abdomen). (heroin/ meth). INSTRUCTIONS Prescription Medications: Bactrim DS 800 mg / 160 mg: take 1 tablet orally every 12 hours for 10 days. No refill. Substitution is permissible. Follow-up: Follow up with your doctor in three days. ADDITIONAL INFORMATION Cellulitis You have an infection of the skin known as cellulitis. This usually starts with a scrape, cut, insect bite, blister or other opening in the skin which becomes infected. This is a serious condition. It must be watched closely to be sure the infection is not spreading. With antibiotic treatment, the size of the red area will gradually shrink in size until the skin returns to normal. This will take 7-10 days. The red area should never increase in size once the antibiotic medicine has been started. Occasionally, an infection will be resistant to one antibiotic and another one will have to be used. Home Care: 1) Limit the use of the affected part, since excess movement can cause the infection to spread. 2) If the infection is on your leg, walk as little as possible during the first few days of the treatment. Keep your leg elevated while sitting. This will reduce swelling. 3) Take all of the antibiotic medicine exactly as directed until it is gone. Be careful not to miss any doses, especially during the first seven days. Follow Up with your doctor or this facility as directed. Check the infected area daily for the warning signs listed below. Get Prompt Medical Attention if any of the following occur: -- Spreading area of redness -- Increasing swelling or pain -- Appearance of pus or drainage -- Fever over 100.4 F (38.0 C) oral, or over 101.4 F (38.6 C) rectal, after two days on antibiotics Staph Infection (MRSA) "Staph" is the short name for the common bacteria called "staphylococcus aureus". Staph bacteria are often present on the skin without causing an infection. If it gets under the skin an infection occurs. This causes redness, tenderness, swelling and sometimes fluid drainage. MRSA stands for "Methicillin-Resistant Staph Aureus". Unlike a common staph infection, MRSA bacteria are resistant to the usual antibiotics and harder to treat. Also, MRSA is more toxic than common staph bacteria. It can spread quickly throughout the body and cause a life-threatening illness. MRSA is spread to others by direct physical contact with the bacteria. MRSA can also be transmitted from items contaminated by a person who has the bacteria, such as bandages, towels, bed sheets, or sports equipment. It is not spread through the air. Once you have a MRSA skin infection, you are at risk of having it recur in the future. If MRSA infection is suspected, the doctor may take a wound culture to confirm the diagnosis. Any abscess will be drained. One or sometimes two antibiotics that work against MRSA will be prescribed. Home Care: 1) Take any antibiotics prescribed exactly as directed until they are gone. 2) Follow the same washing procedures as outlined for Household Members below. 3) Keep draining wounds covered with clean, dry bandages. Change dressings as they become soiled. 4) You and those in contact with you should wash their hands frequently with soap and warm water or use an alcohol-based hand dust collector ore crushing. Do this after each time you change the bandage or touch the wound. 5) Avoid sharing personal items such as towels, washcloths, razors, clothing, or uniforms. Wash soiled sheets, towels or clothes in hot water with laundry detergent. Use an automatic clothes dryer set on high to kill any remaining bacteria. 6) Remove any artificial nails and nail guamanian. 7) If you use a gym, wipe down equipment before and after each use. Treatment Of Household Members If you have been diagnosed with possible MRSA infection, those living with you are at higher risk of carrying the bacteria on their skin or in their nose, even if there is no sign of infection. Bacteria must be removed from the skin of all household members (including you) at the same time, so that it is not passed back and forth. Advise them to remove the bacteria as follows: Wash your whole body (scalp to toes) daily for five days with Hibiclens (chlorhexidine). Scrub fingernails with a brush for one minute twice a day. If any skin infections are present (boils, abscess, infected cut) these must be treated by a doctor. Washing alone will not treat a MRSA infection. Clean counter tops and children's toys; do not share personal items such as toothbrush and razors. It is okay to share glasses, plates, utensils. If antibiotic ointment was prescribed use it as directed. Follow Up with your doctor or as advised by our staff. If a wound culture was taken, call as directed in two days to obtain the results. If the culture result is positive for MRSA, tell medical personnel in the future that you were treated for this type of infection. Get Prompt Medical Attention if any of the following occur: -- Increasing redness, swelling or pain -- Red streaks in the skin around the wound -- Weakness or dizziness -- New appearance of pus or drainage from the wound -- New fever over 100.4 F (38.0 C) Sulfamethoxazole, Trimethoprim Oral tablet What is this medicine? SULFAMETHOXAZOLE; TRIMETHOPRIM or SMX-TMP (suhl fuh meth OK deonte zohl; trye METH oh prim) is a combination of a sulfonamide antibiotic and a second antibiotic, trimethoprim. It is used to treat or prevent certain kinds of bacterial infections. It will not work for colds, flu, or other viral infections. How should I use this medicine? Take this medicine by mouth with a full glass of water. Follow the directions on the prescription label. Take your medicine at regular intervals. Do not take it more often than directed. Do not skip doses or stop your medicine early. Talk to your county superintendent of schools regarding the use of this medicine in children. Special care may be needed. This medicine has been used in children as young as 2 months of age. What side effects may I notice from receiving this medicine? Side effects that you should report to your doctor or health care mgr as soon as possible: allergic reactions like skin rash or hives, swelling of the face, lips, or tongue breathing problems fever or chills, sore throat irregular heartbeat, chest pain joint or muscle pain pain or difficulty passing urine red pinpoint spots on skin redness, blistering, peeling or loosening of the skin, including inside the mouth unusual bleeding or bruising unusually weak or tired yellowing of the eyes or skin Side effects that usually do not require medical attention (report to your doctor or health care mgr if they continue or are bothersome): diarrhea dizziness headache loss of appetite nausea, vomiting nervousness What may interact with this medicine? Do not take this medicine with any of the following medications: aminobenzoate potassium dofetilide metronidazole This medicine may also interact with the following medications: HANDY inhibitors like benazepril, enalapril, lisinopril, and ramipril cyclosporine digoxin diuretics indomethacin medicines for diabetes methenamine methotrexate phenytoin potassium supplements pyrimethamine sulfinpyrazone tricyclic antidepressants warfarin What if I miss a dose? If you miss a dose, take it as soon as you can. If it is almost time for your next dose, take only that dose. Do not take double or extra doses. Where should I keep my medicine? Keep out of the reach of children. Store at room temperature between 20 to 25 degrees C (68 to 77 degrees F). Protect from light. Throw away any unused medicine after the expiration date. What should I tell my health care provider before I take this medicine? They need to know if you have any of these conditions: anemia asthma being treated with anticonvulsants if you frequently drink alcohol containing drinks kidney disease liver disease low level of folic acid or [id number] dehydrogenase poor nutrition or malabsorption porphyria severe allergies thyroid disorder an unusual or allergic reaction to sulfamethoxazole, trimethoprim, sulfa drugs, other medicines, foods, dyes, or preservatives or trying to get breast-feeding What should I watch for while using this medicine? Tell your doctor or health care mgr if your symptoms do not improve. Drink several glasses of water a day to reduce the risk of kidney problems. Do not treat diarrhea with over the counter products. Contact your doctor if you have diarrhea that lasts more than 2 days or if it is severe and watery. This medicine can make you more sensitive to the sun. Keep out of the sun. If you cannot avoid being in the sun, wear protective clothing and use a sunscreen. Do not use sun lamps or tanning beds/booths. You have been given the following additional information: Cellulitis MRSA Skin Infection, Suspected Or Confirmed Sulfamethoxazole, Trimethoprim Oral tablet (Electronically signed by Trina Dougherty P.A.-C 01/24/2017 17:25)
--- NOTE | 2017-01-25 00:08 | ED DISCHARGE INSTRUCTIONS ---
Patient: PAT PATEL General Instructions [facility] VisitID: [id number] [place] [address] 21y, F Registration Date/Time: 01/24/2017 Cellulitis of the right forearm, right lower leg, left forearm and left lower leg (abdomen). (heroin/ meth). INSTRUCTIONS Prescription Medications: Bactrim DS 800 mg / 160 mg: take 1 tablet orally every 12 hours for 10 days. No refill. Substitution is permissible. Follow-up: Follow up with your doctor in three days. ADDITIONAL INFORMATION Cellulitis You have an infection of the skin known as cellulitis. This usually starts with a scrape, cut, insect bite, blister or other opening in the skin which becomes infected. This is a serious condition. It must be watched closely to be sure the infection is not spreading. With antibiotic treatment, the size of the red area will gradually shrink in size until the skin returns to normal. This will take 7-10 days. The red area should never increase in size once the antibiotic medicine has been started. Occasionally, an infection will be resistant to one antibiotic and another one will have to be used. Home Care: 1) Limit the use of the affected part, since excess movement can cause the infection to spread. 2) If the infection is on your leg, walk as little as possible during the first few days of the treatment. Keep your leg elevated while sitting. This will reduce swelling. 3) Take all of the antibiotic medicine exactly as directed until it is gone. Be careful not to miss any doses, especially during the first seven days. Follow Up with your doctor or this facility as directed. Check the infected area daily for the warning signs listed below. Get Prompt Medical Attention if any of the following occur: -- Spreading area of redness -- Increasing swelling or pain -- Appearance of pus or drainage -- Fever over 100.4 F (38.0 C) oral, or over 101.4 F (38.6 C) rectal, after two days on antibiotics Staph Infection (MRSA) "Staph" is the short name for the common bacteria called "staphylococcus aureus". Staph bacteria are often present on the skin without causing an infection. If it gets under the skin an infection occurs. This causes redness, tenderness, swelling and sometimes fluid drainage. MRSA stands for "Methicillin-Resistant Staph Aureus". Unlike a common staph infection, MRSA bacteria are resistant to the usual antibiotics and harder to treat. Also, MRSA is more toxic than common staph bacteria. It can spread quickly throughout the body and cause a life-threatening illness. MRSA is spread to others by direct physical contact with the bacteria. MRSA can also be transmitted from items contaminated by a person who has the bacteria, such as bandages, towels, bed sheets, or sports equipment. It is not spread through the air. Once you have a MRSA skin infection, you are at risk of having it recur in the future. If MRSA infection is suspected, the doctor may take a wound culture to confirm the diagnosis. Any abscess will be drained. One or sometimes two antibiotics that work against MRSA will be prescribed. Home Care: 1) Take any antibiotics prescribed exactly as directed until they are gone. 2) Follow the same washing procedures as outlined for Household Members below. 3) Keep draining wounds covered with clean, dry bandages. Change dressings as they become soiled. 4) You and those in contact with you should wash their hands frequently with soap and warm water or use an alcohol-based hand staff radiation therapist. Do this after each time you change the bandage or touch the wound. 5) Avoid sharing personal items such as towels, washcloths, razors, clothing, or uniforms. Wash soiled sheets, towels or clothes in hot water with laundry detergent. Use an automatic clothes dryer set on high to kill any remaining bacteria. 6) Remove any artificial nails and nail uruguayan. 7) If you use a gym, wipe down equipment before and after each use. Treatment Of Household Members If you have been diagnosed with possible MRSA infection, those living with you are at higher risk of carrying the bacteria on their skin or in their nose, even if there is no sign of infection. Bacteria must be removed from the skin of all household members (including you) at the same time, so that it is not passed back and forth. Advise them to remove the bacteria as follows: Wash your whole body (scalp to toes) daily for five days with Hibiclens (chlorhexidine). Scrub fingernails with a brush for one minute twice a day. If any skin infections are present (boils, abscess, infected cut) these must be treated by a doctor. Washing alone will not treat a MRSA infection. Clean counter tops and children's toys; do not share personal items such as toothbrush and razors. It is okay to share glasses, plates, utensils. If antibiotic ointment was prescribed use it as directed. Follow Up with your doctor or as advised by our staff. If a wound culture was taken, call as directed in two days to obtain the results. If the culture result is positive for MRSA, tell medical personnel in the future that you were treated for this type of infection. Get Prompt Medical Attention if any of the following occur: -- Increasing redness, swelling or pain -- Red streaks in the skin around the wound -- Weakness or dizziness -- New appearance of pus or drainage from the wound -- New fever over 100.4 F (38.0 C) Sulfamethoxazole, Trimethoprim Oral tablet What is this medicine? SULFAMETHOXAZOLE; TRIMETHOPRIM or SMX-TMP (suhl fuh meth OK deonte zohl; trye METH oh prim) is a combination of a sulfonamide antibiotic and a second antibiotic, trimethoprim. It is used to treat or prevent certain kinds of bacterial infections. It will not work for colds, flu, or other viral infections. How should I use this medicine? Take this medicine by mouth with a full glass of water. Follow the directions on the prescription label. Take your medicine at regular intervals. Do not take it more often than directed. Do not skip doses or stop your medicine early. Talk to your pest control operator regarding the use of this medicine in children. Special care may be needed. This medicine has been used in children as young as 2 months of age. What side effects may I notice from receiving this medicine? Side effects that you should report to your doctor or health nurse care manager as soon as possible: allergic reactions like skin rash or hives, swelling of the face, lips, or tongue breathing problems fever or chills, sore throat irregular heartbeat, chest pain joint or muscle pain pain or difficulty passing urine red pinpoint spots on skin redness, blistering, peeling or loosening of the skin, including inside the mouth unusual bleeding or bruising unusually weak or tired yellowing of the eyes or skin Side effects that usually do not require medical attention (report to your doctor or health nurse care manager if they continue or are bothersome): diarrhea dizziness headache loss of appetite nausea, vomiting nervousness What may interact with this medicine? Do not take this medicine with any of the following medications: aminobenzoate potassium dofetilide metronidazole This medicine may also interact with the following medications: HANDY inhibitors like benazepril, enalapril, lisinopril, and ramipril cyclosporine digoxin diuretics indomethacin medicines for diabetes methenamine methotrexate phenytoin potassium supplements pyrimethamine sulfinpyrazone tricyclic antidepressants warfarin What if I miss a dose? If you miss a dose, take it as soon as you can. If it is almost time for your next dose, take only that dose. Do not take double or extra doses. Where should I keep my medicine? Keep out of the reach of children. Store at room temperature between 20 to 25 degrees C (68 to 77 degrees F). Protect from light. Throw away any unused medicine after the expiration date. What should I tell my health care provider before I take this medicine? They need to know if you have any of these conditions: anemia asthma being treated with anticonvulsants if you frequently drink alcohol containing drinks kidney disease liver disease low level of folic acid or estyegm-2-cehakwcdh dehydrogenase poor nutrition or malabsorption porphyria severe allergies thyroid disorder an unusual or allergic reaction to sulfamethoxazole, trimethoprim, sulfa drugs, other medicines, foods, dyes, or preservatives or trying to get breast-feeding What should I watch for while using this medicine? Tell your doctor or health nurse care manager if your symptoms do not improve. Drink several glasses of water a day to reduce the risk of kidney problems. Do not treat diarrhea with over the counter products. Contact your doctor if you have diarrhea that lasts more than 2 days or if it is severe and watery. This medicine can make you more sensitive to the sun. Keep out of the sun. If you cannot avoid being in the sun, wear protective clothing and use a sunscreen. Do not use sun lamps or tanning beds/booths. You have been given the following additional information: Cellulitis MRSA Skin Infection, Suspected Or Confirmed Sulfamethoxazole, Trimethoprim Oral tablet (Electronically signed by Trina Dougherty P.A.-C 01/24/2017 17:25)
--- NOTE | 2017-01-25 00:08 | ED MAR SUMMARY ---
..... Medication Administration Record [facility] [address] [place] [place] [address] Patient: PAT PATEL Visit ID: [id number] 21y, F Weight: 54.4 kg Height/Length: 68 in BMI: 18.2 ALLERGIES: None Given 17:26 01/24/2017 Candie Dickens R.N. Medication Administered: BACTRIM DS [PO] (SULFAMETHOXAZOLE-TMP DS), Dose: 1 tab Tablets PO. Medication Ordered: Bactrim DS PO (Tablet 800-160 mg) 1 tab (NOW).
--- NOTE | 2017-01-25 00:08 | ED MED RECONCILIATION SUMMARY ---
Patient: PAT PATEL Medication Reconciliation Report [facility] VisitID: [id number] [address] [place] [address] 21y, F Registration Date/Time: 01/24/2017 Weight: 54.4 kg Height/Length: 68 in. BMI: 18.2 ALLERGIES: None The patient's Home Medications are listed below: NONE. The source(s) of the original Home Medication information: Not obtained. The following Medications were given to the patient in the Emergency Department: Bactrim DS [PO] PO 1 tab, administered: 01/24/2017 5:26:00 PM The following Medications were prescribed to the patient: Bactrim DS 800 mg / 160 mg: take 1 tablet orally every 12 hours for 10 days. No refill. Substitution is permissible. -- Trina Dougherty PDharaADhara-C
== END 2017-01-24 17:30 | disposition home or self-care (01) ==
LOC: ED SRH 16:44
DX: L03.113 Cellulitis of right upper limb (principal); L03.115 Cellulitis of right lower limb; L03.116 Cellulitis of left lower limb; F11.10 Opioid abuse, uncomplicated
CPT/HCPCS: 90070; 90131; 90309; 91672